=== PATIENT | female | born 1970 | race Caucasian/White ===

== ENCOUNTER 2021-02-12 14:31 | Emergency (ER) | payer OTHER ==
[~2021-02-12 14:31] MED LIST: AEROCHAMBER1 EA XX; PERCOCET 5-3251 EACH PO; VENTOLIN HFA 66.7 GM INH
[2021-02-12] MEDS ORDERED: MEDROL DOSEPAK 24 MG PO (16:48)
[2021-02-12] MEDS ORDERED: ALBUTEROL1.25 MG/3 INH (16:48)
== END 2021-02-12 17:09 | disposition home or self-care (01) ==
LOC: ER1 14:31
DX: J44.9 Chronic obstructive pulmonary disease, unspecified (principal); J40 Bronchitis, not specified as acute or chronic; Z20.822 Contact with and (suspected) exposure to COVID-19; Z90.49 Acquired absence of other specified parts of digestive tract; Z87.891 Personal history of nicotine dependence
CPT/HCPCS: 71046; 94664; 99284; U0002

== ENCOUNTER 2021-04-02 10:46 | Inpatient (IN) | payer OTHER ==
[~2021-04-02] VITALS: Ht 154.9 cm; Wt 115.7 kg
[~2021-04-02 10:46] MED LIST changes: +ALBUTEROL1.25 MG/3 INH; +MEDROL DOSEPAK 24 MG PO
[2021-04-02 13:11] LABS: RED BLOOD COUNT 3.92 M/UL (4.00-5.10); WHITE BLOOD COUNT 13.7 K/UL (4.5-11.0)
[2021-04-02 13:35] LABS: BUN/CREATININE RATIO 10 (0-10)
[2021-04-02] MEDS ORDERED: ALBUTEROL1.25 MG/3 INH (23:15)
[2021-04-03 02:54] LABS: HEMOGLOBIN 11.5 gm/dl (12.3-15.3); RED BLOOD COUNT 4.16 M/UL (4.00-5.10)
[2021-04-03 02:56] LABS: WHITE BLOOD COUNT 17.5 K/UL (4.5-11.0)
[2021-04-03 03:44] LABS: BUN/CREATININE RATIO 14 (0-10)
[2021-04-03] MEDS ORDERED: LEVOFLOXACIN750 MG PO (09:42)
[2021-04-03] MEDS ORDERED: MEDROL DOSEPAK 24 MG PO (09:42)
== END 2021-04-03 12:12 | disposition home or self-care (01) | DRG 190 ==
LOC: ER1 10:46 → CDU 19:39 → MED SURG 4 19:39
PROVIDERS: Physician Assistant Medical; ADMIT Internal Medicine
DX: J44.1 Chronic obstructive pulmonary disease with (acute) exacerbation (principal); J18.9 Pneumonia, unspecified organism; Z20.822 Contact with and (suspected) exposure to COVID-19; J44.0 Chronic obstructive pulmonary disease with (acute) lower respiratory infection; J20.9 Acute bronchitis, unspecified; G89.29 Other chronic pain; M54.9 Dorsalgia, unspecified; Z79.899 Other long term (current) drug therapy; Z84.89 Family history of other specified conditions
CPT/HCPCS: 36415; 71045; 80053; 82550; 82553; 83605; 83735; 83874; 83880; 84100; 84484; 84703; 85025; 85027; 85652; 86140; 87040; 93005; 94640; 94664; 94760; 96374; 96375; 99285; J0456; J0696; J1650; J2930; J7030; U0002

== ENCOUNTER → 2021-07-17 | Outpatient (CLI) | payer OTHER ==
[~2021-07-17] MED LIST changes: +LEVOFLOXACIN750 MG PO
== END ==
LOC: EXRD 11:05
DX: R05.9 Cough, unspecified (principal); R91.8 Other nonspecific abnormal finding of lung field
CPT/HCPCS: 71046

== ENCOUNTER → 2021-07-30 | Outpatient (CLI) | payer OTHER | LOC: KOH-I 08:55 | DX: R05.9 Cough, unspecified (principal); R91.1 Solitary pulmonary nodule | CPT/HCPCS: 71250 ==

== ENCOUNTER → 2021-10-07 | Outpatient (CLI) | payer OTHER | LOC: HEART 5 10:34 | DX: J44.9 Chronic obstructive pulmonary disease, unspecified (principal) | CPT/HCPCS: 94060; 94729 ==